=== PATIENT | female | born 1975 | race Two or more races ===

== ENCOUNTER 2024-03-07 16:22 | Emergency (ER) | payer OTHER ==
[~2024-03-07] VITALS: Ht 152.4 cm; Wt 100.2 kg
[2024-03-07] MEDS: IV NORMAL SALINE 1000 ML BAG IV ONE (17:37)
[2024-03-07 17:38] LABS: BASOPHILS % (AUTO) 0.2 % (0.0-2.0); HEMATOCRIT 37.9 % (31.2-41.9); HEMOGLOBIN 12.3 g/dL (10.9-14.3); LYMPHOCYTES # (AUTO) 1.2 K/uL (0.8-4.8); LYMPHOCYTES % (AUTO) 12.3 % (20.5-51.5); MEAN CORPUSCULAR HEMOGLOBIN 26.8 uug (24.7-32.8); MEAN CORPUSCULAR HGB CONC 32 g/dL (32.3-35.6); MEAN CORPUSCULAR VOLUME 82.7 fL (75.5-95.3); MONOCYTES # (AUTO) 0.8 K/uL (0.1-1.30); MONOCYTES % (AUTO) 8.5 % (0.0-11.0); NEUTROPHILS # (AUTO) 7.8 K/uL (1.8-8.9); PLATELET COUNT (AUTO) 255 K/uL (179-408); RED BLOOD CELL COUNT(AUTO) 4.59 MIL/uL (3.63-4.92); RED CELL DISTRIBUTION WIDTH 14.9 % (12.3-17.7); WHITE BLOOD COUNT (AUTO) 9.9 K/uL (3.8-11.8)
[2024-03-07 17:46] LABS: CALCIUM 9.1 mg/dL (8.5-10.1); CREATININE 0.7 mg/dL (0.6-1.3); POTASSIUM 4.1 mmol/L (3.5-5.1)
[2024-03-07] MEDS ORDERED: ASPIRIN 81 MG TAB.CHEW ONE (18:46)
[2024-03-07] MEDS ORDERED: HYDROMORPHONE 1 MG/1 ML DISP.SYRIN ONE ×3 (18:47→21:52)
[2024-03-07] MEDS ORDERED: ONDANSETRON 4 MG/2 ML VIAL ONE (18:47)
[2024-03-07] MEDS ORDERED: IOHEXOL 350 100 ML INFUS..BTL ONE (18:48)
[2024-03-07] MEDS ORDERED: IV NORMAL SALINE 250 ML IV ONE (18:48)
[2024-03-07] MEDS ORDERED: SWABABLE VALVE TRANSFER SET EA MC ONE (18:48)
[2024-03-07] MEDS: ASPIRIN 81 MG TAB.CHEW PO ONE (18:49)
[2024-03-07] MEDS: ONDANSETRON 4 MG/2 ML VIAL IV ONE (18:53)
[2024-03-07] MEDS: HYDROMORPHONE 1 MG/1 ML DISP.SYRIN IV ONE ×3 (18:56→22:02)
[2024-03-07 19:40] LABS: ALANINE AMINOTRANSFERASE 34 U/L (14-59); ALBUMIN 3.5 g/dL (3.4-5.0); ALKALINE PHOSPHATASE 114 U/L (50-136); ASPARTATE AMINOTRANSFERASE 19 U/L (15-37); BILIRUBIN,DIRECT 0.1 mg/dL (0.0-0.2); BILIRUBIN,TOTAL 0.6 mg/dL (0.2-1.0); NT-PRO BNP 290 pg/mL (0-125)
[2024-03-07] MEDS ORDERED: MORPHINE SULFATE 4 MG/1 ML DISP.SYRIN IV ONE (21:00)
[2024-03-07] MEDS ORDERED: AZITHROMYCIN 250 MG TABLET ONE (22:26)
[2024-03-07] MEDS: AZITHROMYCIN 250 MG TABLET PO ONE (22:27)
[2024-03-07] MEDS ORDERED: HYDR-3980 PO (23:40)
[2024-03-07] MEDS ORDERED: ONDA4TAB11 PO (23:40)
[2024-03-08 00:17] VITALS: BP 140/70; TEMP 97.2; O2SAT 97
== END 2024-03-08 00:17 | disposition home or self-care (01) ==
LOC: ER 16:22
DX: R51.9 Headache, unspecified (principal); R07.89 Other chest pain; R93.89 Abnormal findings on diagnostic imaging of other specified body structures; I48.91 Unspecified atrial fibrillation; Z98.51 Tubal ligation status; Z20.822 Contact with and (suspected) exposure to COVID-19
CPT/HCPCS: 99285; 70496; 96374; 71045; 96361; 96375; 87426; 80076; 80048; 83880; 85025; 85379; 87040 ×2; 84484 ×2; 36415; 74177; 93005 ×2; 96376; 70450; J2405; Q9967; J1171 ×3; J7040; A4606; A4663; Q0144